=== PATIENT | female | born 1930 | race Caucasian/White ===

== ENCOUNTER → 2016-07-08 | Outpatient (CLI) | payer OTHER ==
--- NOTE | 2016-07-08 18:01 | DX ---
Left hip, 2 views. July 08, 2016. HISTORY: Pain. FINDINGS: Hip joint spaces are symmetric and normal. No fracture. Underlying osteopenia. Sacroiliac j oints and symphysis pubis appear normal. 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 IMPRESSION: 1. Negative left hip radiographs.
== END ==
LOC: CIMAGING 16:33
PROVIDERS: ATTEND Family Medicine
DX: R10.32 Left lower quadrant pain (principal)
CPT/HCPCS: 73501-PO

== ENCOUNTER → 2016-07-18 | Outpatient (CLI) | payer OTHER ==
--- NOTE | 2016-07-18 08:46 | US ---
Left Upper Quadrant Abdominal Sonogram History: left lower quadrant pain, left groin pain when getting out of bed, possible hernia Technique: High frequency imaging of the inguinal area with and without Valsalva maneuver Findings: No hernia, fluid collection or adenopathy is identified. Impression: No source for pain identified. If symptoms persist helical CT obtained during active Vals salamanca maneuver might be considered.
== END ==
LOC: CIMAGING 07:54
PROVIDERS: ATTEND Family Medicine
DX: R10.32 Left lower quadrant pain (principal)
CPT/HCPCS: 76705-PO